=== PATIENT | female | born 1985 | race Caucasian/White ===

== ENCOUNTER → 2017-10-26 | Outpatient (CLI) | payer OTHER | END | disposition home or self-care (01) | LOC: US 08:36 | PROC: BW4GZZZ Ultrasonography of Pelvic Region (ICD-10-PCS; principal; 2017-10-26) | PROC: BW40ZZZ Ultrasonography of Abdomen (ICD-10-PCS; 2017-10-26) | DX: R10.84 Generalized abdominal pain (principal) ==